=== PATIENT | male | born 1950 | race Caucasian/White ===

== ENCOUNTER → 2019-08-02 | Outpatient (CLI) | payer BC, OTHER | LOC: CAT 09:19 | DX: J98.4 Other disorders of lung (principal); I25.10 Atherosclerotic heart disease of native coronary artery without angina pectoris; Z87.891 Personal history of nicotine dependence ==

== ENCOUNTER → 2021-07-04 | Day surgery (SDC) | payer BC, OTHER ==
[~2021-07-04] VITALS: Ht 172.7 cm; Wt 80.3 kg
[~2021-07-04] MED LIST: ATORVASTATIN CA80 MG PO; HYDROCODON-ACE1 EAC7 PO; OMEPRAZOLE 20 M20 M1 PO
--- NOTE | ~2021-07-04 | O ---
[facility] [place] [address] OPERATIVE REPORT Name: REYMUNDO PAIZ JR Room #: REG [facility].#: [id number] Admission: 07/04/21 Attend Phys: Eduardo Lang MD Discharge: Date of : 54 Report #: [id number] THIS REPORT FOR: cc: Nancy Hamm DNP, Mary E. DNP Chu, Peter Y. MD ~ cc: DATE OF SERVICE: 07/04/2021 PREOPERATIVE DIAGNOSIS: Left inguinal hernia. POSTOPERATIVE DIAGNOSIS: Left indirect inguinal hernia, large size hernia sac. PROCEDURE PERFORMED: Laparoscopic properitoneal repair of left indirect inguinal hernia with mesh with large 3DMax lightweight mesh. ANESTHESIA: General. SURGEON: Eduardo Lang MD COMPLICATIONS: None. BLOOD LOSS: 5 mL DESCRIPTION OF PROCEDURE: With the patient under general anesthesia, IV antibiotic was administered, Gifford catheter was placed. Abdomen was prepped and draped in sterile fashion. Timeout was performed. A 0.25% Marcaine was used to anesthetize the skin adjacent to the umbilicus on the left side. A 2 cm incision was made adjacent to the umbilicus transversely on the left side of the umbilicus. The skin incision and subcutaneous tissue was divided with cautery down to the fascia. Anterior rectus sheath was incised transversely, the muscle was spread. The space between the muscle and the posterior sheath was then palpated and then bluntly dissected inferiorly. A balloon trocar was placed through the same space. CO2 was placed through the balloon trocar keeping a pressure at 12. A 5 mm trocar was placed under visualization into the properitoneal space. Blunt dissection and cautery were then used to free the properitoneal space. The dissection was carried inferiorly, at which point the previous mesh was identified. I could even see a ProTack present. I was able to work lateral to this old mesh and inferiorly and identifying the pubic bone. There was no direct defect. The medial wall was opened up and a second 5 mm trocar was placed here. Using these 2 trocars, the patient had a large indirect hernia sac, which was pretty thickened. The hernia sac was freed from the surrounding fat and then lifted off the cord. The vas was preserved, so were the cord vessels. Hernia sac was completely brought out of the internal ring. A moderate-sized left cord lipoma was also reduced. The patient's internal ring [address] [address] OPERATIVE REPORT Name: REYMUNDO PAIZ Room #: REG [facility]#: [id number] Admission: 07/04/21 Attend Phys: Eduardo Lang MD Discharge: Date of : 54 Report #: [id number] moderately dilated. The left inferior epigastric vessel was shifted a little more medially from the hernia pushing it that way. The hemostasis was checked and obtained. The lateral wall was freed nicely. The patient's previous colon surgery did not seem to affect this laparoscopic properitoneal approach. A large left-sided 3DMax lightweight mesh was then placed through the 5 mm trocar. This was then opened, seated properly covering the internal ring well and mesh was tacked superolaterally to the wall, inferomedially to the Adis's ligament, superomedially to the rectus muscle. The hernia sac and the lipoma was noted to be medial to the mesh material away from the internal ring. CO2 was evacuated. Trocars then removed. The fascial defect at the cutdown site was closed with [id number] 0 Vicryl x 2. The skin was irrigated, closed with 5-0 PDS. Steri-Strips, Band-Aids used for dressing. The patient tolerated the procedure well. By: [id number] [id number] Eduardo Lang MD /nt
[2021-07-04 08:30] VITALS: BP 143/86
--- NOTE | 2021-07-04 09:08 | EKG ---
[address] [place] [address] ELECTROCARDIOGRAM REPORT Name: IZABELREYMUNDO MONROE SOTO Room #: REG [facility]#: [id number] Admission: 07/04/21 Attend Phys: Eduardo Lang MD Discharge: Date of : 54 Report #: [id number] [facility] Test Date: 2021-07-04 Test Time: 08:47:05 Pat Name: REYMUNDO PAIZ Department: Room: Gender: M Chief Executive Or Managing Director: STUART : 1950 Requested By: Eduardo Lang Order Number: [id number] MD: Monroe Iglesias Measurements Intervals [place] Rate: 51 P: -18 PA: 177 QRS: -16 QRSD: 139 T: 21 QT: 438 QTc: 404 Interpretive Statements Sinus rhythm Right bundle branch block Compared to ECG 10/19/2006 13:23:11 Right bundle-branch block now present T-wave abnormality no longer present Electronically Signed On 07-04-2021 9:07:53 CDT by Monroe Iglesias [email or web address] <ELECTRONICALLY SIGNED> By: Monroe Iglesias MD, [facility] 07/04/21906 0847 6 Monroe Ilgesias MD, FAC /EPI
[2021-07-04 09:14] LABS: HEMOGLOBIN 14.1 gm/dL (14.0-18.0)
[2021-07-04 12:29] VITALS: BP 143/86
== END | disposition home or self-care (01) ==
LOC: OR 06-27 10:28
PROVIDERS: ATTEND Surgery
DX: K40.90 Unilateral inguinal hernia, without obstruction or gangrene, not specified as recurrent (principal); D17.6 Benign lipomatous neoplasm of spermatic cord; E78.00 Pure hypercholesterolemia, unspecified; K21.9 Gastro-esophageal reflux disease without esophagitis; Z98.890 Other specified postprocedural states; Z79.899 Other long term (current) drug therapy; Z87.891 Personal history of nicotine dependence; Z20.822 Contact with and (suspected) exposure to COVID-19
CPT/HCPCS: 50010; 50101; 50411; 50455; 50507; 50555; 50848; 52265; 53065; 53307; 56462; 56525; 56526; 58574; 62110; 62900; 70005